=== PATIENT | male | born 1995 | race Two or more races ===

== ENCOUNTER 2018-11-24 13:12 | Emergency (ER) | payer MEDICAID, OTHER ==
[~2018-11-24] VITALS: Ht 172.7 cm; Wt 72.6 kg
[~2018-11-24 13:12] MED LIST: NKM
--- NOTE | 2018-11-24 13:25 | NUR ---
ED Nurse Note: Patient walked in complaining of dry lips. AAO x4, VSS at this time.
[2018-11-24 13:55] VITALS: BP 125/80
[2018-11-24] MEDS ORDERED: METRONIDAZOLE45 G1 TOPIC (13:58)
[2018-11-24 14:12] VITALS: BP 125/80
--- NOTE | 2018-11-24 14:13 | NUR ---
ER DISCHARGE NOTE: Patient is cleared to be discharged per ERMD, pt is aox4, on room air, with stable vital signs. pt was given dc and prescription instructions, pt was able to verbalize understanding, pt id band removed. pt is able to ambulate with steady gait. pt took all belongings.
--- NOTE | 2018-11-24 20:46 | Emergency Room Report ---
History of Present Illness General Chief Complaint: General Complaint Source: Patient Present Illness HPI Patient is a 23-year-old male presenting for chapped lips as well as bumps he noticed around the mouth for the past 3 weeks. He describes pain is a 3 out of 10 burning sensation primarily after he eats. 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 He denies any other symptoms including nausea, vomiting, fever, chills, cough, sore throat Allergies: Coded Allergies: IBUPROFEN (Verified Allergy, Unknown, 03/24/16) Shrimp (Verified Allergy, Unknown, 03/24/16) Patient History Past Medical History: see triage record Pertinent Family History: none Reviewed Nursing Documentation: PMH: Agreed; PSxH: Agreed Nursing Documentation-PMH Past Medical History: No Stated History Review of Systems All Other Systems: negative except mentioned in HPI Physical Exam Vital Signs Date Time Temp Pulse Resp B/P (MAP) Pulse Ox O2 Delivery O2 Flow Rate FiO2 11/24/18 13:38 98.2 75 18 125/80 98 Room Air Sp02 EP Interpretation: reviewed, normal General Appearance: no apparent distress, alert, GCS 15, non-toxic Head: normocephalic, atraumatic Eyes: bilateral eye normal inspection, bilateral eye PERRL ENT: hearing grossly normal, normal pharynx, no angioedema, normal voice, uvula midline, moist mucus membranes Neck: full range of motion, supple/symm/no masses Neurologic: alert, oriented x3, responsive, motor strength/tone normal, sensory intact, speech normal Psychiatric: judgement/insight normal, memory normal, mood/affect normal, no suicidal/homicidal ideation Skin: normal color, warm/dry, rash - erythematous papules surrounding mouth Medical Decision Making PA Attestation Dr. Gonzalez is my supervising physician. Patient management was discussed with my supervising physician Diagnostic Impression: Primary Impression: Perioral dermatitis ER Course Patient is a 23-year-old male presenting for chapped lips as well as bumps he noticed around the mouth for the past 3 weeks. Differential diagnoses considered but not limited to: Herpes, perioral dermatitis, cheilitis, among others PE: Afebrile. NAD Lips are dry and cracked. There are small, erythematous papules surrounding mouth. No lesions to lips The patient is given information regarding keeping the area moist. He will continue to apply Chapstick and use a humidifier at home. Is given prescription for topical metronidazole He will follow-up with primary doctor as discussed. ER precautions given Last Vital Signs Date Time Temp Pulse Resp B/P (MAP) Pulse Ox O2 Delivery O2 Flow Rate FiO2 11/24/18 14:12 98.2 18 125/80 98 Room Air 11/24/18 13:55 75 Status: improved Disposition: HOME, SELF-CARE Condition: Improved Scripts Metronidazole (METRONIDAZOLE) 45 Gm Cream..g. 1 APPLIC TOPIC TWICE A DAY, #45 GM Prov: DEBI HUGO 11/24/18 Referrals: [facility],REFERRING (PCP) Patient Instructions: Rash Additional Instructions: I discussed my findings with the patient. All questions and concerns have been answered. Treatment and medication compliance have been addressed. I advised the patient that they need to follow up with PMD in 3-5 days. Return to ED if symptoms worsen, new symptoms arise, or if needed for any reason. Patient verbalized understanding of discharge instructions. DEBI HUGO Nov 24, 2018 20:46
== END 2018-11-24 14:15 | disposition home or self-care (01) ==
LOC: EMR 14:00
DX: L71.0 Perioral dermatitis (principal); Z88.6 Allergy status to analgesic agent; Z91.013 Allergy to seafood
CPT/HCPCS: 99282

== ENCOUNTER 2019-04-22 16:12 | Emergency (ER) | payer OTHER ==
[~2019-04-22] VITALS: Ht 172.7 cm; Wt 78.0 kg
[~2019-04-22 16:12] MED LIST changes: +METRONIDAZOLE45 G1 TOPIC
[2019-04-22 16:15] VITALS: BP 118/78
--- NOTE | 2019-04-22 16:15 | NUR ---
ED Nurse Note: Patient ambulated in to ER from home due to penis itchiness which started a month ago. Patient alert and oriented x4 and ambulatory. Skin clean and intact. Calm and cooperative. No acute distress noted at this time.
[2019-04-22] MEDS ORDERED: DIPHENHYDRAMINE25 M3 ORAL (17:17)
--- NOTE | 2019-04-22 17:22 | NUR ---
ED Nurse Note: pt cleared to be d/c per ER provider, pt discharge and aftercare instruction provided w/ prescription, pt education done via discussion and handout, advised to follow up with pcp or return to ed if changes in condition, vss, ambulatory w/ steady gait, left w/ all belongings.
[2019-04-22 17:23] VITALS: BP 128/75
--- NOTE | 2019-04-22 17:23 | Emergency Room Report ---
History of Present Illness General Chief Complaint: Male Urogenital Problems Source: Patient Present Illness [facility] Disclaimer: Please note that this report is being documented using DRAGON technology. This can lead to erroneous entry secondary to incorrect interpretation by the dictating instrument. HPI: 23-year-old otherwise healthy male presents for evaluation of groin itch. Symptoms have been present for roughly 1 month. He was seen for outpatient labs sent by his PMD for RPR, HSV, HIV, chlamydia, gonorrhea, urinalysis, HIV all of which returned negative. He notes intermittent itching over the dorsal and ventral aspects of his penis. He denies any skin breakdown, rash, warts, ulcerations, lumps in his groin, pain in his testicles, difficulty passing urine , dysuria, hematuria, flank pain, fevers, chills, abdominal pain, vomiting, diarrhea or other changes in his health. He was using nystatin powder which has been improving his symptoms and he has been using it intermittently. He states he usually feels better after showering. He is sexually active with a partner but uses barrier contraception each time. PMH: None PSH: None Allergies: Ibuprofen, shrimp Social Hx: Denies excessive alcohol use, tobacco or drug use Allergies: Coded Allergies: IBUPROFEN (Verified Allergy, Unknown, 03/24/16) Shrimp (Verified Allergy, Unknown, 03/24/16) Nursing Documentation-PMH Past Medical History: No Stated History Review of Systems All Other Systems: negative except mentioned in HPI Physical Exam Vital Signs Date Time Temp Pulse Resp B/P (MAP) Pulse Ox O2 Delivery O2 Flow Rate FiO2 04/22/19 16:15 98.6 67 18 118/78 98 Room Air General: Awake and alert, no acute distress Resp: Normal work of breathing. Abdomen: Abdomen is soft, nondistended. Nontender : Uncircumcised male, no swelling of the foreskin. Easily retractable. No discharge, no ulceration. No lymphadenopathy in the groin. Testicles are in anatomic position, nontender. Bilateral cremasteric reflex. No blood, discharge at the urethral meatus Skin: Intact. No abrasions, laceration or rash over the exposed skin. Scars over the right arm. MSK: Normal tone and bulk. Moving all extremities. No obvious deformity. Neuro: Awake and alert. Mentating appropriately. Medical Decision Making Diagnostic Impression: Primary Impression: Itching of male genitalia ER Course There is an otherwise healthy 23-year-old male presented for evaluation of intermittent itching in his groin. He is already had extensive outpatient labs including STD panel and urinalysis which returned negative. He was him having some improvement with the nystatin jock itch powder he bought [id number]. Also states it is better after he showers quickly. Might be a local inflammatory or allergic reaction. He will monitor the detergent use, new fabrics and other possible triggers. Will start at very low dose of Benadryl for a few days to monitor for improvement. He can follow-up with his PMD as needed if this condition persists. Also encouraged to continue using the powder if it helps. He understands reasons to return to the emergency department as well as need for follow-up. He will be discharged Last Vital Signs Date Time Temp Pulse Resp B/P (MAP) Pulse Ox O2 Delivery O2 Flow Rate FiO2 04/22/19 16:16 99.0 82 20 131/76 (94) 98 Room Air Disposition: HOME, SELF-CARE Condition: Stable Scripts Diphenhydramine Hcl (DIPHENHYDRAMINE HCL) 25 Mg Tablet 25 MG ORAL Q8H PRN for Itching, #30 TAB 0 Refills Prov: Moi Craft MD 04/22/19 Additional Instructions: Continue to use the medicated powder and we can try a low-dose of Benadryl for your itching. Labs you have already completed are reassuring. Please follow- up with your primary doctor at the next available appointment if this continues. Do not drive or operate machinery while taking Benadryl until you know how it will affect you. If you have any new sores, warts, discharge, pain with urination, skin breakdown or any other changes please return to the emergency department for reevaluation. Moi Craft MD Apr 22, 2019 17:22
== END 2019-04-22 17:23 | disposition home or self-care (01) ==
LOC: EMR 16:35
DX: L29.8 Other pruritus (principal); Z88.8 Allergy status to other drugs, medicaments and biological substances; Z91.013 Allergy to seafood
CPT/HCPCS: 99282